=== PATIENT | male | born 1960 | race Caucasian/White ===

== ENCOUNTER 2024-05-19 23:44 | Emergency (ER) | payer OTHER, MEDICARE, SELFPAY ==
[2024-05-19 23:50] VITALS: BP 162/92; PULSE 82; TEMP 36.6; O2SAT 99; BMI 29.5
--- NOTE | 2024-05-19 23:56 | PC.NURSE ---
PT HAS CAST CATH PLACED ON TUESDAY FOR HEMATURIA. PT STATES NO OUTPUT SINCE NOON TODAY
--- NOTE | 2024-05-20 00:17 | CT_ITS ---
[address] [address] Patient Name: FRANK LEUNG MRN: [id number] date: 1960 Sex: M Assigned Patient Location: ER Current Patient Location: Accession/Order Number: [id number] Exam Date: 05/20/2024 00:52 Report Date: 05/20/2024 03:02 At the request of: CHIARA CHINO Procedure: CT abdomen pelvis wo con EXAM: CT abdomen pelvis wo con HISTORY: hematuria COMPARISON: None. TECHNIQUE: Noncontrast axial CT images through the abdomen and pelvis were obtained with coronal and sagittal reformats. Dose reduction techniques were achieved by using automated exposure control and/or adjustment of mA and/or kV according to patient size and/or use of iterative reconstruction technique. FINDINGS: There is mild bibasilar atelectasis. Abdomen: Please note that the sensitivity for detection of focal lesions or vascular disease is markedly reduced without intravenous contrast. There is hepatic steatosis. Splenic calcifications are suggestive of prior granulomatous disease. There is no intra or extrahepatic biliary duct dilatation. The gallbladder is unremarkable. There is mild bilateral hydronephrosis and hydroureter with no renal or ureteral calculi. There is colonic diverticulosis without evidence of acute inflammation. Otherwise, the pancreas, adrenal glands, and bowel loops, including the appendix, are unremarkable. There is no mesenteric or retroperitoneal lymphadenopathy. Pelvis: There is marked urinary bladder wall thickening with a small amount of air in the bladder. A Castro catheter is in place. The rectum is unremarkable. There is no iliac or inguinal lymphadenopathy. There are small fat-containing inguinal hernias. There is prostatomegaly. There is mild atherosclerotic disease. Bone windows show no aggressive osseous lesions. CT/CT abdomen pelvis wo con IMPRESSION: 1. Urinary bladder wall thickening with air in the bladder. Please correlate with urinalysis for infection. There is mild bilateral hydronephrosis and hydroureter, likely secondary to the bladder inflammation. 2. Hepatic steatosis. 3. Colonic diverticulosis without evidence of acute inflammation. 4. Normal appendix. 5. Prostamegaly. Electronically authenticated by: Raoul MCCLENDON Date: 05/20/2024 03:02
[2024-05-20] MEDS: MORPHINE SULFATE 4 MG/ML VIAL IM (00:47)
[2024-05-20 01:02] LABS: Color Urine DK. RED (YELLOW); Specific Gravity Urine 1.015 (1.005-1.025)
[2024-05-20 01:06] LABS: Bilirubin Urine COLOR INTERFERENCE (NEGATIVE); Blood Urine COLOR INTERFERENCE (NEGATIVE); Glucose Urine UA COLOR INTERFERENCE mg/dL (NEGATIVE); Ketones Urine COLOR INTERFERENCE mg/dL (NEGATIVE); Leukocyte Esterase Urine COLOR INTERFERENCE (NEGATIVE); Nitrite Urine COLOR INTERFERENCE (NEGATIVE); Protein Urine COLOR INTERFERENCE mg/dL (NEG/TRACE); Urine Microscopic Indicated YES; Urobilinogen Urine COLOR INTERFERENCE EU/dL (0.2-1.0)
[2024-05-20 01:07] LABS: Bacteria Urine TRACE #/HPF (NONE SEEN); Cast Seen? NONE SEEN #/LPF (NONE SEEN); Clarity Urine CLOUDY (CLEAR); Crystals Seen? None Seen #/HPF (None Seen); Mucus Urine NONE SEEN (NONE SEEN); RBC Urine >100 #/HPF (0-2); Squamous Epithelial Cell Urine NONE SEEN #/LPF (NONE/RARE); WBC Urine 0-2 #/HPF (NONE SEEN)
[2024-05-20 01:26] LABS: Basophils Absolute Auto 0.1 10^3/uL (0.0-0.1); Basophils Percent Auto 0.7 % (0.2-2.0); Eosinophils Absolute Auto 0.4 10^3/uL (0.0-0.7); Eosinophils Percent Auto 5.7 % (0.9-7.0); Hematocrit 30.6 % (42.0-54.0); Hemoglobin 10.2 g/dL (14.0-18.0); Immature Granulocytes Abs Auto 0.07 10^3/uL (0.00-0.03); Immature Granulocytes Pct Auto 0.9 % (0.0-0.5); Lymphocytes Absolute Auto 1.6 10^3/uL (1.2-3.8); Lymphocytes Percent Auto 21.3 % (20.5-60.0); Mean Corpuscular HGB Conc 33.3 g/dL (29.9-35.2); Mean Platelet Volume 10.3 fL (9.5-13.5); Monocytes Absolute Auto 0.7 10^3/uL (0.3-0.8); Monocytes Percent Auto 9.3 % (1.7-12.0); Neutrophils Absolute Auto 4.8 10^3/uL (1.4-6.5); Neutrophils Percent Auto 62.1 % (43.0-75.0); Platelet Count 303 10^3/uL (150-450); Red Blood Count 3.29 10^6/uL (4.70-6.10); Red Cell Distribution Width 14.1 % (11.0-15.0); White Blood Count 7.7 10^3/uL (4.0-11.0)
--- NOTE | 2024-05-20 01:34 | ED_ITS ---
HPI HPI - General Adult General Chief complaint: Urogenital-Male Stated complaint: URINE ISSUES Time Seen by Provider: 05/19/24 23:50 Source: patient Mode of arrival: walk-in Limitations: no limitations History of Present Illness HPI narrative: 64-year-old male to the emergency department with chief complaint of hematuria. Patient reports that he has had a Castro catheter in place for the last few days. He was placed in urology outpatient office. He had previously been treated for UTI and hematuria. He is not on antibiotics at this time. Patient reports he has not had any urine output for several hours. He is concerned about obstruction. Related Data Previous Rx's ?Medication ?Instructions ?Recorded oxybutynin chloride 5 mg 5 mg PO DAILY #14 tabs 05/20/24 tablet,extended release 24 hr phenazopyridine 200 mg tablet 200 mg PO TID PRN bladder spasms 05/20/24 (Pyridium) #9 tabs Allergies Allergy/AdvReac Type Severity Reaction Status Date / Time No Known Drug Allergies Allergy Verified 05/19/24 23:50 Opioid HPI Opioid Management Most Recent Opioid Data: No Data to Display Review of Systems ROS Status of ROS 10 or more systems reviewed and unremark able except as noted in history and below PFSH PFSH Social History Little interest or pleasure in doing things: not at all Feeling down, depressed, or hopeless: not at all Exam Narrative Exam Narrative: VITALS: I have reviewed the triage vital signs. GENERAL: Well developed, well appearing adult in no acute distress. NEURO: Alert and oriented. Moves all extremities. Face is symmetric and expressive. EYES: PERRL. No scleral icterus or conjunctival injection. No discharge. HENT: Normocephalic, atraumatic. Hearing is grossly intact. Nares grossly patent and without discharge. Mucous membranes moist. NECK: No JVD. Patient moves neck without restriction. CARDIO: Rhythm regular. Normal rate. No murmur, rub, or gallop. Pulses equal bilaterally in the upper and lower extremity. No lower extremity edema. PULM: Lungs clear to auscultation in all [place]. No wheezes, rales, or rhonchi. No conversational dyspnea. No splinting, stridor, or accessory muscle use. GI/: Abdomen is soft and non-tender. Normoactive bowel sounds. Normal appearing external male genitalia. Castro catheter in place. EXTREMITIES: Symmetric muscle bulk. No joint swelling. No clubbing, cyanosis, or deformity. SKIN: Warm and dry. Normal turgor. No rash or lesions appreciated. PSYCH: Mood, affect, and interaction is appropriate to the setting. Constitutional Vital Signs, click to edit/add: Last Vital Signs Temp 97.8 F 05/19/24 23:50 Pulse 82 05/19/24 23:50 Resp 18 05/19/24 23:50 BP 162/92 H 05/19/24 23:50 Pulse Ox 99 05/19/24 23:50 O2 Del Method Room Air 05/19/24 23:50 Course Vital Signs Vital signs: Vital Signs Temperature 97.8 F 05/19/24 23:50 Pulse Rate 82 05/19/24 23:50 Respiratory Rate 18 05/19/24 23:50 Blood Pressure 162/92 H 05/19/24 23:50 Pulse Oximetry 99 05/19/24 23:50 Oxygen Delivery Method Room Air 05/19/24 23:50 Temperature 97.8 F 05/19/24 23:50 Pulse Rate 82 05/19/24 23:50 Respiratory Rate 18 05/19/24 23:50 Blood Pressure 162/92 H 05/19/24 23:50 Pulse Oximetry 99 05/19/24 23:50 Oxygen Delivery Method Room Air 05/19/24 23:50 Medical Decision Making MDM Narrative Medical decision making narrative: 64-year-old male to the emergency department with chief complaint of decreased urine output through Castro catheter. Vital stable, the patient is afebrile. His abdominal examination is benign. Urinalysis and bladder scan are ordered. UA with significant hematuria, no evidence of infection. Bladder scan is positive with 380 cc with Castro catheter in place. Manual irrigation was performed. Unable to get flow established. Three-way Castro is placed. Adequate flow. Lab work is baseline. Urinalysis without evidence of infection. CT scan results reviewed. Oxybutynin and Azo prescribed. He has upcoming appointment on 05/24 with urology. Urine is clear. He is appropriate for discharge home. Medical Records Medical records reviewed: Yes I reviewed the patient's medical records Lab Data Lab results reviewed: Yes I reviewed the patient's lab results Labs: Lab Results 05/20/24 05/20/24 Range/Units 00:51 01:14 WBC 7.7 (4.0-11.0) 10^3/uL RBC 3.29 L (4.70-6.10) 10^6/uL Hgb 10.2 L (14.0-18.0) g/dL Hct 30.6 L (42.0-54.0) % MCV 93.0 (80.0-94.0) fL MCH 31.0 (25.9-34.0) pg MCHC 33.3 (29.9-35.2) g/dL RDW 14.1 (11.0-15.0) % Plt Count 303 (150-450) 10^3/uL MPV 10.3 (9.5-13.5) fL Neut % (Auto) 62.1 (43.0-75.0) % Lymph % (Auto) 21.3 (20.5-60.0) % [place] % (Auto) 9.3 (1.7-12.0) % Eos % (Auto) 5.7 (0.9-7.0) % Baso % (Auto) 0.7 (0.2-2.0) % Neut # (Auto) 4.8 (1.4-6.5) 10^3/uL Lymph # (Auto) 1.6 (1.2-3.8) 10^3/uL [place] # (Auto) 0.7 (0.3-0.8) 10^3/uL Eos # (Auto) 0.4 (0.0-0.7) 10^3/uL Baso # (Auto) 0.1 (0.0-0.1) 10^3/uL Abs Immat Gran (auto) 0.07 H (0.00-0.03) 10^3/uL Imm/Tot Granulo (auto) 0.9 H (0.0-0.5) % Sodium 135 L (136-145) mmol/L Potassium 4.0 (3.5-5.1) mmol/L Chloride 102 (98-107) mmol/L Carbon Dioxide 24.4 (21.0-32.0) mmol/L Anion Gap 12.6 BUN 20.0 H (7.0-18.0) mg/dL Creatinine 1.25 (0.70-1.30) mg/dL Est GFR ( Amer) >60 (>=60) Est GFR (Non-Af Amer) 58 L (>=60) BUN/Creatinine Ratio 16.0 Glucose 106 (74-106) mg/dL Calcium 8.7 (8.5-10.1) mg/dL Urine Color Dk. red (YELLOW) Urine Clarity Cloudy A (CLEAR) Urine pH 7.0 (5.0-9.0) Ur Specific [place] 1.015 (1.005-1.025) Urine Protein Color interference A (NEG/TRACE) mg/dL Urine Glucose (UA) Color interference A (NEGATIVE) mg/dL Urine Ketones Color interference A (NEGATIVE) mg/dL Urine Occult Blood Color interference A (NEGATIVE) Urine Nitrite Color interference A (NEGATIVE) Urine Bilirubin Color interference A (NEGATIVE) Urine Urobilinogen Color interference A (0.2-1.0) EU/dL Ur Leukocyte Esterase Color interference A (NEGATIVE) Urine RBC >100 A (0-2) #/HPF Urine WBC 0-2 A (NONE SEEN) #/HPF Ur Squamous Epith Cells None seen (NONE/RARE) #/LPF Urine Crystals None seen (None Seen) #/HPF Urine Bacteria Trace A (NONE SEEN) #/HPF Urine Casts None seen (NONE SEEN) #/LPF Urine Mucus None seen (NONE SEEN) Imaging Data CT scan - abdomen: Radiologist's impression: ITS Impressions Abdomen/Pelvis CT 05/20/24 00:17 IMPRESSION: 1. Urinary bladder wall thickening with air in the bladder. Please correlate with urinalysis for infection. There is mild bilateral hydronephrosis and hydroureter, likely secondary to the bladder inflammation. 2. Hepatic steatosis. 3. Colonic diverticulosis without evidence of acute inflammation. 4. Normal appendix. 5. Prostamegaly. Electronically authenticated by: Raoul MCCLENDON Date: 05/20/2024 03:02 Discharge Plan Discharge Chief Complaint: Urogenital-Male Clinical Impression: Hematuria Patient Disposition: Home, Self-Care Time of Disposition Decision: 03:33 Condition: Good Mode of Transportation: Private Vehicle Prescriptions / Home Meds: New oxybutynin chloride 5 mg tablet extended release 24hr 5 mg PO DAILY Qty: 14 0RF phenazopyridine [Pyridium] 200 mg tablet 200 mg PO TID PRN (Reason: bladder spasms) Qty: 9 0RF Print Language: Spanish Instructions: Castro Catheter Placement and Care (ED), Hematuria (ED), How to Change a Catheter Drainage Bag (DC) Additional Instructions: Call the office of your primary care doctor to arrange for follow-up within the above-stated timeframe. Your ED visit was focused on your acute issue and does not replace primary care. You should review your labs, imaging, and diagnoses from this ED visit with your primary care physician. There may be non-emergent/ incidental findings that need further evaluation. You should review your vital signs including blood pressure with your PCP. If you were prescribed medications you should discuss possible side-effects and drug interactions with your pharmacist. Call 911 or go to the nearest Emergency Department if you develop any new or worsening symptoms. Referrals: Rita Cornejo MD [Physician] - 05/24/24 (Urology appointment as scheduled) Physician,Non-StaffMD [Primary Care Provider] - 1 week
[2024-05-20 01:41] LABS: Anion Gap 12.6; Calcium 8.7 mg/dL (8.5-10.1); Carbon Dioxide 24.4 mmol/L (21.0-32.0); Chloride 102 mmol/L (98-107); Estimated GFR (African America >60 (>=60); Estimated GFR (Non-African Ame 58 (>=60); Glucose 106 mg/dL (74-106); Sodium 135 mmol/L (136-145)
[2024-05-20 03:47] VITALS: BP 125/63; PULSE 66; O2SAT 99
== END 2024-05-20 03:53 | disposition home or self-care (01) ==
PROVIDERS: Emergency Provider Student in an Organized Health Care Education/Training Program
DX: R31.9 Hematuria, unspecified (principal)
CPT/HCPCS: 36415; 51702; 74176; 80048; 81001; 85025; 96372; 99284; J2270